=== PATIENT | female | born 1945 | race Caucasian/White ===

== ENCOUNTER 2017-02-16 06:12 | Day surgery (SDC) | payer MEDICARE, OTHER ==
[2017-02-12 11:08] LABS: BASOPHILS 0.6 %; BASOPHILS ABSOLUTE 0.04 10/3/uL (0.0-0.16); EOSINOPHILS 12.7 %; EOSINOPHILS ABSOLUTE 0.81 10/3/uL (0.0-0.53); HEMATOCRIT 36.9 % (36.0-48.0); HEMOGLOBIN 12.6 g/dL (12.0-16.0); IMMATURE GRANULOCYTES 0.2 %; IMMATURE GRANULOCYTES ABSOLUTE 0.01 10/3/uL (0.0-0.11); LYMPHOCYTES 32.2 %; LYMPHOCYTES ABSOLUTE 2.06 10/3/uL (0.67-4.30); MEAN CORPUS HGB CONC 34.1 g/dL (32.0-36.0); MEAN CORPUSCULAR HEMOGLOB 31.9 pg (26.0-34.0); MEAN CORPUSCULAR VOLUME 93.4 fL (80-100); MEAN PLATELET VOLUME 10.1 fL (9.2-13.0); MONOCYTES 6.1 %; MONOCYTES ABSOLUTE 0.39 10/3/uL (0.21-1.20); NEUTROPHILS 48.2 %; NEUTROPHILS ABSOLUTE 3.08 10/3/uL (2.02-8.40); PLATELET COUNT 270 10/3/uL (150-400); RBC DISTRIBUTION WIDTH 12.3 % (12.0-16.0); RED CELL COUNT 3.95 10/6/uL (4.0-5.6); WHITE BLOOD CELLS 6.4 10/3/uL (4.5-10.5)
[2017-02-12 11:09] LABS: MANUAL DIFF NO %
[2017-02-12 11:16] LABS: INTERNATIONAL NORMAL RATI 1.2 UNITS (-); PARTIAL THROMBO TIME 30.3 SEC (22.5-37.2)
[2017-02-12 11:24] LABS: BUN (BLOOD UREA NITROGEN) 31 MG/DL (6-23); CALCIUM, SERUM 8.6 MG/DL (8.5-10.4); CHLORIDE, SERUM 104 MMOL/L (96-112); CO2 (CARBON DIOXIDE) 27 MMOL/L (24-34); CREATININE 1.21 MG/DL (0.55-1.02); GFR AFRICAN AMERICAN 53 ML/MIN (>=60); GFR NON AFRICAN AMERICAN 46 ML/MIN (>=60); GLUCOSE, SERUM 129 MG/DL (60-99); SODIUM, SERUM 142 MMOL/L (135-148)
--- NOTE | ~2017-02-16 | OP ---
Record Of Operation [facility] [address] [place]. 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 POSTOPERATIVE DIAGNOSES: Chronic rhinosinusitis, right frontal ethmoid sinuses and right maxillary sinus along with bilateral nasal airway obstruction. OPERATIVE PROCEDURES PERFORMED: 1. Right endoscopic frontal sinusotomy. 2. Right endoscopic ethmoidectomy. 3. Bilateral inferior turbinoplasty. 4. Right maxillary antrostomy. INDICATIONS AND SIGNIFICANT HISTORY: The patient is a 71-year-old female with significant history of persistent right frontal and ethmoid sinusitis as well as nasal airway obstruction, not relieved by topical nasal steroid application or antibiotic or injections. The patient was felt to benefit from surgical therapy and was scheduled for such. OPERATIVE PROCEDURE AND FINDINGS: After informed consent was obtained, the patient was brought to the operating room, and placed on the operating room table in the supine position, at which point general endotracheal anesthesia was induced by the Anesthesia Service, and the bed was turned 90 degrees toward the typewriter operator automatic. Through zero-degree endoscope, right and left nasal cavities were inspected. The left nasal cavity which was found to have a large inferior turbinate, the right nasal cavity was addressed with initially uncinectomy using a sickle knife and a straight grasping forceps to avulse the uncinate process from its position in the right lateral nasal sidewall. At this point, the maxillary antrum was enlarged using a straight biting forceps and backbiting forceps such as a backbiter. Attention was then turned toward the ethmoid bulla, which was entered with a J curette and opened from anteriorly to posteriorly along its inferior border and then taken from posteriorly to anteriorly along the skull base. The frontal recess was identified with a lighted guidewire. Once in position in the frontal sinus, serial dilation was performed of the frontal recess, and the bone was removed from this area with a 45-degree grasping forceps, and this provided a large frontal sinusotomy. Upon entering the frontal sinus, there was mucopurulent drainage from the right frontal sinus. This completed the maxillary antrostomy, Ethmoidectomy, and frontal sinusotomies. Next, attention was turned toward the inferior turbinates which were pierced with a suction shaver and submucous resection was performed. Next, the inferior turbinates were then medialized using a Turin septal displacer and then lateralized using the same instrument. Propelled middle meatus stent was then placed into the right ethmoid bed, and at that point, the patient was turned back toward Anesthesia, aroused from anesthesia, and taken to the post Anesthesia Care Unit in satisfactory condition. COMPLICATIONS: None. Record Of Operation [place] [address] [facility] [place]. [address] NAME: CARL SAVAGE : 49 STATUS : [facility] PAT#: [id number] AGE: 71 ADM/REG DATE : 02/16/17 MR#: [id number] REPORT SERV DATE: 02/17/17 DICTATED BY: CJ MADRID. DATE: 02/17/17 REPORT STATUS : Draft TRANSCRIBED BY: GISELLA DATE: 02/17/17 ESTIMATED BLOOD LOSS: Less than 50 mL. IV FLUIDS: Per Anesthesia. DLA/MODL Cj Madrid M.D. / [id number] CC: Ella Chavez
[~2017-02-16 06:12] MED LIST: ARICEPT ODT5 MG PO; ASAB PO; GLUCPH PO; L40 PO; OXYCON20 PO; PERCOCET1 TA4 PO; PRENATABS RX PO; TOPXL25 PO; X5 PO; ZANTAC150 MG PO; ZESTORETIC1 TA1 PO; ZESTRIL20 MG PO
== END 2017-02-16 12:13 | disposition home or self-care (01) ==
LOC: SDC 06:12
PROVIDERS: Otolaryngology
PROC: 09TL4ZZ Resection of Nasal Turbinate, Percutaneous Endoscopic Approach (ICD-10-PCS; 2017-02-16)
PROC: 099Q4ZZ Drainage of Right Maxillary Sinus, Percutaneous Endoscopic Approach (ICD-10-PCS; principal; 2017-02-16 07:30)
PROC: 09TU4ZZ Resection of Right Ethmoid Sinus, Percutaneous Endoscopic Approach (ICD-10-PCS; 2017-02-16 07:30)
PROC: 09BS4ZZ Excision of Right Frontal Sinus, Percutaneous Endoscopic Approach (ICD-10-PCS; 2017-02-16 07:30)
DX: J32.8 Other chronic sinusitis (principal); J34.89 Other specified disorders of nose and nasal sinuses; E78.5 Hyperlipidemia, unspecified; G47.33 Obstructive sleep apnea (adult) (pediatric); E11.9 Type 2 diabetes mellitus without complications; F41.9 Anxiety disorder, unspecified; M06.9 Rheumatoid arthritis, unspecified; I44.7 Left bundle-branch block, unspecified; E78.00 Pure hypercholesterolemia, unspecified; I10 Essential (primary) hypertension; Z90.710 Acquired absence of both cervix and uterus; Z90.89 Acquired absence of other organs; Z79.899 Other long term (current) drug therapy; Z88.5 Allergy status to narcotic agent; Z83.6 Family history of other diseases of the respiratory system; Z83.3 Family history of diabetes mellitus; Z82.49 Family history of ischemic heart disease and other diseases of the circulatory system; Z82.3 Family history of stroke; Z86.73 Personal history of transient ischemic attack (TIA), and cerebral infarction without residual deficits; Z99.89 Dependence on other enabling machines and devices; Z79.82 Long term (current) use of aspirin; Z79.891 Long term (current) use of opiate analgesic; Z98.890 Other specified postprocedural states
CPT/HCPCS: 80048; 82962; 85025; 85610; 85730; 88305; 93005; A9270-GY; C1726; C2625; J2250; J2405; J2710; J3010